=== PATIENT | female | born 1945 | race Caucasian/White ===

== ENCOUNTER 2016-08-26 13:45 | Emergency (ER) | payer MEDICARE, OTHER ==
[~2016-08-26 13:45] MED LIST: ALBUPOW26; DICL-164; FLUT250M9; LISI-275; ROSU10TA16
[2016-08-26] MEDS ORDERED: IBUPROFEN 600 MG TAB PO ONE (16:45)
[2016-08-26 18:39] VITALS: BP 124/91
== END 2016-08-26 19:34 | disposition home or self-care (01) ==
LOC: ER 13:45
DX: S22.42XA Multiple fractures of ribs, left side, initial encounter for closed fracture (principal); J44.9 Chronic obstructive pulmonary disease, unspecified; F17.210 Nicotine dependence, cigarettes, uncomplicated; M19.90 Unspecified osteoarthritis, unspecified site; E78.5 Hyperlipidemia, unspecified; I10 Essential (primary) hypertension; Z90.49 Acquired absence of other specified parts of digestive tract; Z88.1 Allergy status to other antibiotic agents; Z88.6 Allergy status to analgesic agent; Z88.8 Allergy status to other drugs, medicaments and biological substances; W19.XXXA Unspecified fall, initial encounter; Y93.89 Activity, other specified; Y92.89 Other specified places as the place of occurrence of the external cause; Y99.8 Other external cause status
CPT/HCPCS: 71020; 71101; 93005

== ENCOUNTER → 2016-09-26 | Outpatient (CLI) | payer MEDICARE, OTHER ==
[2016-09-26 10:00] VITALS: BP 162/94
[2016-09-26 11:15] VITALS: BP 165/83
== END | disposition home or self-care (01) ==
LOC: Rad HDHVI 08:49
PROVIDERS: ATTEND Internal Medicine Cardiovascular Disease
DX: S09.90XA Unspecified injury of head, initial encounter (principal); G31.9 Degenerative disease of nervous system, unspecified; I67.2 Cerebral atherosclerosis; I10 Essential (primary) hypertension; I27.2 Other secondary pulmonary hypertension; M81.0 Age-related osteoporosis without current pathological fracture; X58.XXXA Exposure to other specified factors, initial encounter; Y93.89 Activity, other specified; Y92.89 Other specified places as the place of occurrence of the external cause; Y99.8 Other external cause status
CPT/HCPCS: 70450; 77078; 93306; G0463

== ENCOUNTER → 2019-08-28 | Outpatient (CLI) | payer MEDICARE, OTHER | END | disposition home or self-care (01) | LOC: Rad HDHVI 12:26 | PROVIDERS: ATTEND Internal Medicine Cardiovascular Disease | DX: M81.0 Age-related osteoporosis without current pathological fracture (principal); I70.0 Atherosclerosis of aorta | CPT/HCPCS: 71101 ==

== ENCOUNTER → 2019-09-18 | Outpatient (CLI) | payer MEDICARE, BC ==
[2019-09-18 12:08] LABS: Basophils # (auto) 0 10 ^3/uL (0-0.2); Basophils % (auto) 0.9 % (0.0-2.0); Eosinophils # (auto) 0.1 10 ^3/uL (0-0.8); Eosinophils % (auto) 2.4 % (0.0-7.0); Hematocrit 47.5 % (36.0-46.0); Hemoglobin 15.6 g/dL (12.2-16.2); Lymphocytes # (auto) 1.4 10 ^3/uL (0.4-5.4); Lymphocytes % (auto) 25.2 % (10.0-50.0); Mean Corpuscular Hemoglobin 31.4 pg (28.0-32.0); Mean Corpuscular Hgb Conc. 32.9 g/dL (32.0-36.0); Mean Corpuscular Volume 95.6 fL (80.0-100.0); Monocytes # (auto) 0.3 10 ^3/uL (0-1.3); Monocytes % (auto) 4.7 % (0.0-12.0); Neutrophils # (auto) 3.6 10 ^3/uL (1.6-8.6); Neutrophils % (auto) 66.8 % (37.0-80.0); Nucleated Red Blood Cells % 0.3 %; Platelet Count (auto) 145 10^3/uL (140-450); Red Blood Cells 4.97 10^6/uL (4.0-5.20); Red Cell Distribution Width 14.4 % (11.8-14.3); White Blood Cell 5.4 10^3/uL (4.4-10.8)
[2019-09-18 12:12] LABS: Urine Blood Negative /uL (Negative); Urine Specific Gravity 1.019 (1.001-1.035)
[2019-09-18 12:25] LABS: Albumin 3.6 g/dL (3.4-5.0); Calcium 9.6 mg/dL (8.5-10.1); Potassium 4.4 mmol/L (3.5-5.1)
[2019-09-18 12:29] LABS: BUN/Creatinine Ratio 25.2; Bilirubin, Total 0.4 mg/dL (0.2-1.0); Total Protein 8.3 g/dL (6.4-8.2)
[2019-09-18 12:33] LABS: Free T4 (Free Thyroxine) 1.08 ng/dL (0.89-1.76)
== END | disposition home or self-care (01) ==
LOC: LAB 08:17
PROVIDERS: ATTEND Internal Medicine
DX: E03.9 Hypothyroidism, unspecified (principal); K90.9 Intestinal malabsorption, unspecified; N39.0 Urinary tract infection, site not specified; D51.9 Vitamin B12 deficiency anemia, unspecified; Z79.899 Other long term (current) drug therapy; Z00.00 Encounter for general adult medical examination without abnormal findings
CPT/HCPCS: 36415; 80053; 80061; 81003; 82306; 82607; 83036; 84439; 84443; 85025; 87086

== ENCOUNTER → 2019-09-30 | Outpatient (CLI) | payer MEDICARE, BC ==
[~2019-09-30] MED LIST changes: +IOHEXOL 350 MG/ML 100ML IJ ONE; +READI-CAT 2 (BARIUM SULF)(VANILLA SMOOTHIE) 450ML ONE
[2019-09-30 09:00] VITALS: BP 151/64
--- NOTE | 2019-09-30 09:00 | NUR ---
CHF PT ARRIVED TO THE [facility]F [facility] FOR CT ABD/PEL WITH CONTRAST FOR LOWER ABD PAIN. A/OX4. AMBULATORY.
--- NOTE | 2019-09-30 09:50 | NUR ---
IV insertion IV access obtained, via clean sterile technique by inserting 22 gauge catheter at after 1 attempt(s). IV secured properly. No trauma to site. Patient tolerated procedure well. NOTE INSERTED BY PA SOSA
--- NOTE | 2019-09-30 11:30 | NUR ---
IV removal IV DC'd with sterile technique, catheter fully intact. Pressure dressing applied to site. Patient tolerated procedure well. Discharged with aftercare instructions per MD. NOTE: REMOVED BY LIZ SOSA
[2019-09-30 11:39] VITALS: BP 169/67
--- NOTE | 2019-09-30 11:39 | NUR ---
Discharge Instructions See e-MAR for any mediations given with this visit. Patient education given on disease process. Patient verbalized understanding. Previous labs reviewed. Patient discharged in stable condition with after care instructions and follow up appointment. PT TO FOLLOW UP WITH MD URIOSTEGUI FOR RESULTS.
== END | disposition home or self-care (01) ==
LOC: Rad HDHVI 09:21
PROVIDERS: ATTEND Internal Medicine
DX: I70.0 Atherosclerosis of aorta (principal); M51.36 Other intervertebral disc degeneration, lumbar region; K86.89 Other specified diseases of pancreas; J43.2 Centrilobular emphysema; E78.5 Hyperlipidemia, unspecified; R94.4 Abnormal results of kidney function studies; K29.70 Gastritis, unspecified, without bleeding; Z90.49 Acquired absence of other specified parts of digestive tract; Z87.891 Personal history of nicotine dependence
CPT/HCPCS: 36415; 74177; 82565; G0463; Q9967

== ENCOUNTER → 2019-12-25 | Outpatient (CLI) | payer MEDICARE, BC ==
[~2019-12-25] MED LIST changes: -IOHEXOL 350 MG/ML 100ML IJ ONE; -READI-CAT 2 (BARIUM SULF)(VANILLA SMOOTHIE) 450ML ONE
== END | disposition home or self-care (01) ==
LOC: Rad HDHVI 10:13
PROVIDERS: ATTEND Internal Medicine
DX: M46.06 Spinal enthesopathy, lumbar region (principal); M51.37 Other intervertebral disc degeneration, lumbosacral region; M47.817 Spondylosis without myelopathy or radiculopathy, lumbosacral region; I70.0 Atherosclerosis of aorta; I70.8 Atherosclerosis of other arteries; I70.90 Unspecified atherosclerosis; Z88.1 Allergy status to other antibiotic agents; Z88.5 Allergy status to narcotic agent; Z88.8 Allergy status to other drugs, medicaments and biological substances; M25.552 Pain in left hip
CPT/HCPCS: 72100

== ENCOUNTER 2023-04-24 08:05 | Emergency (ER) | payer MEDICARE, BC ==
[~2023-04-24] VITALS: Ht 170.2 cm; Wt 137.2 kg
[~2023-04-24 08:05] MED LIST changes: -DICL-164; +DICL75TA4
[2023-04-24 08:45] VITALS: BP 153/85; PULSE 83; RESP 18; TEMP 97.2; O2SAT 95
[2023-04-24] MEDS ORDERED: BACDST PO (09:25)
[2023-04-24] MEDS ORDERED: CEPH500C PO (09:25)
[2023-04-24] MEDS ORDERED: NABU-72 PO (09:25)
== END 2023-04-24 09:33 | disposition home or self-care (01) ==
LOC: ER 08:05
DX: L02.01 Cutaneous abscess of face (principal); I10 Essential (primary) hypertension; E78.5 Hyperlipidemia, unspecified; J44.9 Chronic obstructive pulmonary disease, unspecified; M19.90 Unspecified osteoarthritis, unspecified site; F17.210 Nicotine dependence, cigarettes, uncomplicated; Z98.890 Other specified postprocedural states; Z88.8 Allergy status to other drugs, medicaments and biological substances; Z79.899 Other long term (current) drug therapy
CPT/HCPCS: 87205

== ENCOUNTER → 2024-08-26 | Outpatient (CLI) | payer MEDICARE, BC ==
[~2024-08-26] MED LIST changes: +BACDST PO; +CEPH500C PO; +NABU-72 PO
--- NOTE | 2024-08-26 16:24 | DVH ---
XY CHEST TWO VIEWS ROUTINE INDICATION: SOB TECHNIQUE: Two views of the chest COMPARISON: None FINDINGS: LUNGS: No pleural effusion, consolidation, or pneumothorax MEDIASTINUM: Unremarkable BONES: No acute osseous abnormality OTHER: None IMPRESSION: 1. No radiographic evidence of an acute cardiopulmonary process.
--- NOTE | 2024-08-27 12:11 | DVH ---
EXAM: CT LS SPINE WO CONTRAST HISTORY: LBP COMPARISON: None CTDIvol 19.02 mGy, DLP 475.98 mGy*cm. TECHNIQUE: Multiple axial CT images of the spine were obtained using bone algorithm. Axial and johns l reformatting was done. Bone and soft tissue windows were reviewed. FINDINGS: No evidence of definite acute fracture, spinal dislocation, or significant appearing acute subluxatio n is seen. Diffuse osteopenia. Multilevel degenerative changes of the spine most prominent at L4-L5 and L5-S1. There is moderate to severe canal stenosis at L4-L5 and L5-S1. IMPRESSION: No definite CT evidence of acute fracture or dislocation of the bony lumbar spine. Multilevel degenerative changes of the spine with suggestion of severe canal stenosis secondary to di sc osteophyte hypertrophy at L4-L5 and L5-S1. This can be further evaluated with MRI on a nonemergent basis if clinically indicated.
== END | disposition home or self-care (01) ==
LOC: Rad HDHVI 15:27
PROVIDERS: ATTEND Internal Medicine Cardiovascular Disease
DX: M47.817 Spondylosis without myelopathy or radiculopathy, lumbosacral region (principal); M85.88 Other specified disorders of bone density and structure, other site; R06.02 Shortness of breath; M54.50 Low back pain, unspecified; M48.07 Spinal stenosis, lumbosacral region
CPT/HCPCS: 71046; 72131